=== PATIENT | female | born 1985 | race Hispanic/Latino ===

== ENCOUNTER 2021-01-13 09:55 | Outpatient (CLI) | payer OTHER ==
[2021-01-13 11:24] LABS: BHCG - Serum Negative (NEGATIVE); Pregs Control Background? CLEAR/WHITE (CLR/WHITE); Pregs Control Bar Appear? YES (CONTROL BAR)
[2021-01-13 11:31] LABS: ALT (SGPT) 46 U/L (8-55); AST (SGOT) 39 U/L (5-34); Albumin 4.1 g/dL (3.5-5.0); Alkaline Phosphatase 86 U/L (40-110); Anion Gap 13 mmol/L (10-20); BUN (Urea Nitrogen) 8 mg/dL (7.0-18.7); Bilirubin, Total 0.2 mg/dL (0.2-1.2); Calc. Creatinine Clearance 0 mL/min (70-130); Calcium 9.5 mg/dL (7.8-10.44); Carbon Dioxide 25 mmol/L (22-29); Chloride 105 mmol/L (98-107); Globulin 3.2 g/dL (2.4-3.5); Glucose 97 mg/dL (70-105); Protein, Total 7.3 g/dL (6.0-8.3); Sodium 139 mmol/L (136-145)
[2021-01-13 11:36] LABS: #Eosinphils 0.1 10x3/uL (0.0-0.5); #Monocytes 0.7 10x3/uL (0.0-1.1); #Neutrophils 4.8 10x3/uL (1.5-8.4); %Basophils 0.3 % (0.0-2.0); %Eosinophils 1.3 % (0.0-6.0); %Lymphocytes 37.1 % (18.0-47.0); %Monocytes 7.5 % (0.0-10.0); %Neutrophils 53.1 % (40.0-75.0); Hemoglobin 12.6 g/dL (12.0-15.5); Mean Corpuscular HGB CONC 32.5 g/dL (32.0-36.0); Mean Corpuscular Hemoglobin 28.8 pg (27.0-33.0); Mean Corpuscular Volume 88.6 fl (81.6-98.3); Platelet Count 479 10x3/uL (150-450); RBC Distribution Width 13.4 % (11.5-14.5); Red Blood Cell (RBC) Count 4.38 10x6/uL (3.90-5.03)
[2021-01-13 19:29] LABS: SARS-CoV-2 PCR by NAA Not Detected (NotDetected)
== END 2021-01-13 09:56 | disposition home or self-care (01) ==
LOC: LABBT 09:55
PROVIDERS: ATTEND Specialist
DX: Z01.812 Encounter for preprocedural laboratory examination (principal); K80.20 Calculus of gallbladder without cholecystitis without obstruction; Z20.822 Contact with and (suspected) exposure to COVID-19
CPT/HCPCS: 80053; 84703; 85025; U0003; U0005

== ENCOUNTER 2021-01-16 12:19 | Day surgery (SDC) | payer OTHER ==
[2021-01-15 12:35] VITALS: BMI 47.5
[2021-01-16] MEDS ORDERED: Acetaminophen 500 MG TAB ONE (12:38)
[2021-01-16] MEDS ORDERED: Ketorolac Tromethamine 30 MG/ML VIAL ONE (12:38)
[2021-01-16] MEDS ORDERED: Fentanyl 100 MCG/2 ML VIAL ONE ×2 (13:01→16:41)
[2021-01-16] MEDS ORDERED: Dexmedetomidine 200 MCG/2 ML VIAL ONE (13:02)
[2021-01-16] MEDS ORDERED: Lidocaine 1% w/Epinephrine 1:100K 20 ML VIAL ONE (13:20)
[2021-01-16] MEDS ORDERED: Bupivacaine 0.25% HCL 30 ML VIAL ONE (13:20)
[2021-01-16] MEDS ORDERED: Rocuronium Bromide 10 MG/ML (10ML VIAL) ONE (13:58)
[2021-01-16] MEDS ORDERED: Glycopyrrolate 0.2 MG/ML 5 ML SYRINGE ONE (13:58)
[2021-01-16] MEDS ORDERED: Lidocaine 1% PF 5 ML VIAL ONE (13:58)
[2021-01-16] MEDS ORDERED: PROPOFOL 200 MG/20 ML VIAL ONE (13:58)
[2021-01-16] MEDS ORDERED: Dexamethasone 20 MG/5 ML VIAL ONE (13:58)
[2021-01-16] MEDS ORDERED: Ondansetron PF 4 MG/2 ML Vial ONE (13:58)
[2021-01-16] MEDS ORDERED: Albuterol Sulfate HFA (OR ONLY) ONE ×2 (13:58→14:07)
== END 2021-01-16 17:46 | disposition home or self-care (01) ==
LOC: SDC 12:19
PROVIDERS: ATTEND Specialist
PROC: 0FT44ZZ Resection of Gallbladder, Percutaneous Endoscopic Approach (ICD-10-PCS; principal; 2021-01-16)
DX: K80.12 Calculus of gallbladder with acute and chronic cholecystitis without obstruction (principal); N94.89 Other specified conditions associated with female genital organs and menstrual cycle; E66.01 Morbid (severe) obesity due to excess calories; Z68.42 Body mass index [BMI] 45.0-49.9, adult; Z79.2 Long term (current) use of antibiotics; Z79.899 Other long term (current) drug therapy
CPT/HCPCS: 88304; J0690; J1100; J1885; J2405; J2704; J3010; S0020